=== PATIENT | male | born 1990 | race Caucasian/White ===

== ENCOUNTER 2020-04-15 19:28 | Emergency (ER) | payer SELFPAY ==
[2020-04-15] VITALS (15 sets, daily range): BP systolic 135–153; BP diastolic 78–99; PULSE 98–115; RESP 16–29; TEMP 36.5; O2SAT 91–96
--- NOTE | 2020-04-15 19:24 | ED.GENADUL_ITS ---
Discharge Plan Disposition Patient Disposition: AGAINST MEDICAL ADVICE Condition: Stable Discharge Details Clinical Impression: Accidental overdose, Heroin abuse Primary Care Provider: None,None ED Provider: Garfield Bagley Home Meds and New Rx's Prescriptions: No Action No Known Home Meds RF: 0 HPI HPI Narrative: 29-year-old male presents today for evaluation of overdose. Earlier this evening the patient snorted heroin, he became unresponsive, bystanders on scene began CPR. He was given 8 mg of Narcan prior to EMS arrival, upon their arrival the patient was coming to, and starting to act normal. He refused IV and additional treatment from EMS. He was brought here to the ER for further evaluation. Related Data Home Medications Medication Instructions Recorded Confirmed Unknown [No Known Home Meds] 03/22/14 03/22/14 Allergies Allergy/AdvReac Type Severity Reaction Status Date / Time No Known Allergies Allergy Unverified 03/22/14 13:46 Review of Systems All systems reviewed & are unremarkable except as noted in HPI and below PFSH Social History Smoking/Tobacco Use Status: Current every day Drug use: Never Exam Narrative Exam Narrative: 1.Const: Well-nourished, Well-developed, appearing stated age 2.Eyes: PERRL, no conjunctival injection, and symmetrical lids. 3.ENT: Atraumatic external nose and ears. Moist MM. Neck: Symmetric, trachea midline, No thyromegaly. 4.CVS: +S1/S2, No murmurs or gallops. Peripheral pulses 2+ and equal in all extremities. Brisk capillary refill in all extremities. 5.RESP: Unlabored respiratory effort. Clear to auscultation bilaterally. No wheezes rales or rhonchi 6.GI: Soft, Nontender/Nondistended, No hepatosplenomegaly. No guarding or rebou nd. 7.MSK: Normocephalic/Atraumatic, Extremities w/o deformity or ttp No cyanosis or clubbing, Normal movement of all extremities 8.Skin: Warm, Dry. No rashes or lesions. 9.Neuro: personal banking advisor II-XII grossly intact. Sensation grossly intact, no focal neurologic deficits. 10.Psych: (AAO) x3. Appropriate mood and affect
--- NOTE | 2020-04-15 19:30 | NUR.NOTE ---
Nursing Note: Patient declines IV and lab work but agrees to stay and be monitored x 1 1/2 hours.
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
--- NOTE | 2020-04-15 20:15 | RT.EKG_ITS ---
APPROVED REPORT Exam: Resting ECG Patient Location: E HR:110 bpm ECG Measurements Heart Rate 110 AXIS AK 152 P 57 QRSd 94 QRS 4 QT 332 T 35 QTc 448 Conclusion Sinus tachycardia...rate> 99
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
--- NOTE | 2020-04-15 20:20 | NUR.NOTE ---
Nursing Note: Talking on the phone to the manager disaster recovery.
== END 2020-04-15 21:22 | disposition home or self-care (01) ==
PROVIDERS: Emergency Provider Student in an Organized Health Care Education/Training Program
DX: T40.1X1A Poisoning by heroin, accidental (unintentional), initial encounter (principal)
CPT/HCPCS: 93005; 99284; 93010; 99283